=== PATIENT | female | born 1965 | race Hispanic/Latino ===

== ENCOUNTER 2016-05-07 14:12 | Emergency (ER) | payer SELFPAY ==
[~2016-05-07 14:12] MED LIST: Iopamidol 370 76% 100 ML VIAL ONE
[2016-05-07] MEDS ORDERED: Pantoprazole 40 MG VIAL ONE (14:29)
[2016-05-07] MEDS ORDERED: Ondansetron HCl/PF 4 MG/2 ML Vial ONE (14:29)
[2016-05-07 14:38] LABS: #Basophils 0.1 thou/uL (0.0-0.2); #Eosinphils 0.1 thou/uL (0.0-0.7); #Lymphocytes 1.9 thou/uL (1.20-3.40); #Monocytes 0.4 thou/uL (0.11-0.59); #Neutrophils 4.8 thou/uL (1.40-6.50); %Basophils 0.9 % (0.0-1.0); %Lymphocytes 26.1 % (21.0-51.0); %Monocytes 6.1 % (0.0-10.0); %Neutrophils 65.9 % (42.0-75.0); Hemoglobin 15.9 g/dL (12.0-16.0); Mean Corpuscular HGB CONC 33.4 g/dL (32.0-36.0); Mean Corpuscular Hemoglobin 31.1 pg (27.0-31.0); Mean Corpuscular Volume 93.1 fl (81.0-99.0); Mean Platelet Volume 10.5 fL (7.4-10.4); Platelet Count 231 thou/uL (130-400); RBC Distribution Width 11.3 % (11.5-14.5); White Blood Cell (WBC) Count 7.2 thou/uL (4.8-10.8)
[2016-05-07] MEDS ORDERED: Mag-Al Plus 1200 MG/1200 MG/120 MG/30 ML UDCUP ONE (14:56)
[2016-05-07] MEDS ORDERED: Lidocaine Viscous Sol 2% 15 ml UD Cup ONE (14:56)
[2016-05-07 14:57] LABS: ALT (SGPT) 99 U/L (0-55); AST (SGOT) 102 U/L (5-34); Alkaline Phosphatase 99 U/L (40-150); Amylase 58 U/L (25-125); Anion Gap 17 mmol/L (10-20); BUN (Urea Nitrogen) 10 mg/dL (7.0-18.7); Bilirubin, Total 0.7 mg/dL (0.2-1.2); Calc. Creatinine Clearance 0 mL/min (70-130); Carbon Dioxide 25 mmol/L (22-29); Chloride 105 mmol/L (98-107); Estimated GFR-MDRD 67; Globulin 3.2 g/dL (2.4-3.5); Glucose 130 mg/dL (70-105); Lipase 16 U/L (8-78); Potassium 4.1 mmol/L (3.5-5.1); Protein, Total 7.2 g/dL (6.0-8.3); Sodium 143 mmol/L (136-145)
[2016-05-07 15:04] LABS: CKMB 0.4 ng/mL (0-6.6); Troponin I Less than 0.010 ng/mL (< 0.028)
[2016-05-07 15:26] LABS: Bilirubin Negative (Negative); Blood, Urine Trace (Negative); Clarity Clear (Clear); Glucose, Urine (Dipstick) Negative (Negative); Leukocyte Negative (Negative); Nitrite Negative (Negative); Protein, Urine (Dipstick) Negative (Neg-Trace); pH, Urine 5.5 (5.0-9.0)
[2016-05-07 15:29] LABS: Specific Gravity, Urine 1.006 (1.005-1.030)
[2016-05-07 15:30] LABS: Bacteria/HPF None Seen HPF (None Seen); Squamous Epithelial 0-3 HPF (0-3); WBC/HPF 0-3 HPF (0-3)
--- NOTE | 2016-05-07 16:44 | RAD ---
TWO VIEWS CHEST 05/07/2016 PROVIDED CLINICAL HISTORY: Epigastric pain. COMPARISON: 05/15/2008 FINDINGS: The cardiac silhouette is at the upper limits of normal in size. No focal consolidation, pleural fl uid, or pneumothorax apparent. IMPRESSION: No evidence for an acute cardiopulmonary process. POS: [facility]
--- NOTE | 2016-05-07 16:59 | CT ---
CT ABDOMEN AND PELVIS 05/07/2016 PROVIDED CLINICAL HISTORY: Epigastric pain. COMPARISON: 03/22/2011 FINDINGS: The visualized lung bases appear clear. The liver, spleen, pancreas, kidneys, and adrenal glands de monstrate a stable CT appearance. Mild intrahepatic and extrahepatic biliary ductal dilatation is p resumably on the basis of post cholecystectomy status. No bowel dilatation, inflammatory fat strand ing, free fluid, or lymph node enlargement apparent. Stable 3 cm left adnexal cystic structure. The osseous structures demonstrate no concerning osteoblastic or osteolytic lesions. IMPRESSION: 1. No evidence for an acute abnormality involving the abdomen and pelvis. 2. Left adnexal cystic structure. Given its persistence and patient age, potentially not physiolog ic in nature. Correlation with pelvic ultrasound, on a nonemergent basis, is recommended. POS: ADDIE
[2016-05-07 18:00] LABS: CKMB 0.4 ng/mL (0-6.6); Troponin I Less than 0.010 ng/mL (< 0.028)
== END 2016-05-07 18:28 | disposition home or self-care (01) ==
LOC: NAV ERS 14:12
DX: K29.00 Acute gastritis without bleeding (principal); K21.9 Gastro-esophageal reflux disease without esophagitis; F32.9 Major depressive disorder, single episode, unspecified; Z86.73 Personal history of transient ischemic attack (TIA), and cerebral infarction without residual deficits
CPT/HCPCS: 71020; 74177; 80053; 81003; 81015; 82150; 82553; 83690; 84484; 85025; 93005; 94760; 96374; 96375; C9113; J2270; J2405